=== PATIENT | female | born 1955 | race Caucasian/White ===

== ENCOUNTER → 2020-10-10 09:29 | Outpatient (BNVA) | payer OTHER, SELFPAY | PROVIDERS: PCP Internal Medicine; Visit Provider Physician Assistant | DX: Z76.89 Persons encountering health services in other specified circumstances (principal) ==

== ENCOUNTER → 2020-12-11 08:14 | Outpatient (BNVA) | payer OTHER, SELFPAY | PROVIDERS: PCP Internal Medicine; Visit Provider Physician Assistant ==

== ENCOUNTER → 2021-01-15 08:20 | Outpatient (BNVA) | payer OTHER, SELFPAY | PROVIDERS: PCP Internal Medicine; Visit Provider Dietitian, Registered ==

== ENCOUNTER → 2021-02-19 08:25 | Outpatient (BNVA) | payer OTHER, SELFPAY | PROVIDERS: PCP Internal Medicine; Visit Provider Physician Assistant ==

== ENCOUNTER 2023-06-25 09:15 | Outpatient (AMB) | payer OTHER, SELFPAY ==
--- NOTE | 2023-06-25 09:19 | A.OFFVIS_ITS ---
Intake VS Expanded 06/25/23 09:26 Height 5 ft 9 in Weight 196 lb 3.2 oz BMI 29.0 BP 146/72 H Blood Pressure Location Lt brachial Blood Pressure Position Sitting Respiratory Rate 14 Pulse 83 Temp 97.6 F Temperature Source Tympanic Body Fat 75.4 Body Fat Percentage 38.5 Free Fat Mass 120.6 Muscle Mass 114.4 Visceral Mass 10.0 Water Mass 84.4 BMR 1,638 Intake Visit Reasons: (OV) PO LSG 04/04/19 Allergies nitrous oxide [NITROUS OXIDE] Allergy (Unknown, Verified 06/25/23 09:25) CRY FOR DAYS Medication List - Last Reconciled 06/25/23 by Aggie Jaffe PA-C alendronate 70 mg PO QWEEK duloxetine mg PO eletriptan mg PO gabapentin mg PO galcanezumab-gnlm (Emgality) mg subcut lorazepam mg PO hcujinrygbca-yvz-ligk-FA-vit K 45 mg iron- 800 mcg-120 mcg (Bariatric Multivitamins) caps PO rizatriptan mg PO HPI HPI Comments History of Present Illness Details Pt is 4 years s/p LSG with Dr Meier. Last appt was January 2021 at 170 lbs. Pt had lapse in car has restarting emotional eating with 25 lb weight gain an increase migraines. Has a therapist now. Was involved with [facility] post op [facility] - no longer has time in her work schedule. Goal is to weigh 160 lbs and feel more in control of eating behaviors. Meal plan: wakes at 8:30 am and bed at 12MN. 10 am - protein bar or Shake. coffee - 2 cups with UAM (stopped sweetened creamer) 11 am - while driving has hernandez tomatoes or fruit - 1/2 pint 2-3 pm- bar 5pm - bar 8-8:30 - salad with vegetarian chicken nuggets, 9pm - 10pm - popcorn, cheese 70 ounce water per day.. Rare ETOH, 5d/ week marijuana -works for her and doesn't increase appettite Stopped exercising during back pain. Post op complications: none JONO: DM HTN: Hyperlipidemia: GERD: 0-5 scale 0 = no symptoms 1 = symptoms noticeable but not bothersome 2 =symptoms bothersome but not daily 3 = symptoms bothersome and daily 4 = symptoms affect daily activities 5 = symptoms are incapacitating, unable to do daily activities How bad is the heartburn ? Heartburn while lying down ? Heartburn when standing up ? Heartburn after meals ? Does heartburn change your diet ? Does heartburn wake you up from sleep ? Do you have difficulty swallowing ? Do you have pain with swallowing -? If you take medicine for your reflux, does this affect your daily life ? Satisfaction with present condition - satisfied ___ Not satisfied ___ [facility] Medical History (Updated 06/25/23 @ 09:42 by Aggie Jaffe PA-C) Hx of corticosteroid therapy Hx of fracture of pelvis Osteoarthritis Temporary high blood pressure Ulcerative colitis Surgical History History of sleeve gastrectomy Hx laparoscopic cholecystectomy Hx of tonsillectomy Status post right knee replacement Family History Father Ulcerative colitis Hypertension COPD (chronic obstructive pulmonary disease) Bladder cancer Mother Heart disease Sleep apnea Brother Sleep apnea Brother Hypertension Sleep apnea Leukemia Social History Alcohol intake: never Physical Exam Vital Signs: Last Vital Signs Temp 97.6 F 06/25/23 09:26 Pulse 83 06/25/23 09:26 Resp 14 06/25/23 09:26 BP 146/72 H 06/25/23 09:26 BMI result Body Mass Index 29.9 Const General: cooperative, healthy appearing, comfortable and no acute distress GI Inspection: Yes normal to inspection and Yes incision (well healed) Palpation (GI): Soft to palpation, nontender, no hernias and no masses Assessment & Plan Assessment & Plan (1) Overweight: Code(s): E66.3 - Overweight Plan: 80 gram protein per day. She doesn't cookm, is vegetarian, does not eat eggs. She would like information about food delivery services. We discussed more mindful eatng practices and more healthful meals. Stop eating while driving Breakfast meal - 15- 20 grms - tofu salad, vegan egg cups lunch - 20 grams - yogurt with 1/4 cup berries dinner - 30 grams after dinner - 20 gram bar - Exercise - TBP sitting and Yoga for strengthening. Is trying to get more treatment for her chronic back pain. Carol gillis. Discussed reaching out to [facility] or [facility] for more resources, may be moving to [facility] and may need resources there. Post op labs ordered today, patient will puchase Bossman with Iron and increase her calcium/Vit d to bid. I spent 45 minutes in total with patient reviewing/updating records, examining the patient and counseling the patient on weight management as detailed above. (2) History of sleeve gastrectomy: Comment: March 2019 Code(s): Z90.3 - Acquired absence of stomach [part of] Orders: Orders Vitamin B12 and Folate Today E66.3 - Overweight, Z90.3 - Acquired absence of stomach [part of] Comprehensive Met. Panel Today E66.3 - Overweight, Z90.3 - Acquired absence of stomach [part of] C Reactive Protein Today E66.3 - Overweight, Z90.3 - Acquired absence of stomach [part of] Ferritin Today E66.3 - Overweight, Z90.3 - Acquired absence of stomach [part of] Hemoglobin A1c Today E66.3 - Overweight, Z90.3 - Acquired absence of stomach [part of] Insulin Today E66.3 - Overweight, Z90.3 - Acquired absence of stomach [part of] IRON PROFILE Today E66.3 - Overweight, Z90.3 - Acquired absence of stomach [part of] Lipid Panel Today E66.3 - Overweight, Z90.3 - Acquired absence of stomach [part of] PTHI Today E66.3 - Overweight, Z90.3 - Acquired absence of stomach [part of] TSH reflex Free T4 Today E66.3 - Overweight, Z90.3 - Acquired absence of stomach [part of] Vitamin A Today E66.3 - Overweight, Z90.3 - Acquired absence of stomach [part of] Vitamin B1 Today E66.3 - Overweight, Z90.3 - Acquired absence of stomach [part of] Vitamin D 25-OH Total Today E66.3 - Overweight, Z90.3 - Acquired absence of stomach [part of] Zinc Today E66.3 - Overweight, Z90.3 - Acquired absence of stomach [part of] Complete Blood Count Auto Diff Today E66.3 - Overweight, Z90.3 - Acquired absence of stomach [part of] Coding Level of Care Code Est Pt Level 5 (38185) Diagnoses Overweight E66.3 History of sleeve gastrectomy Z90.3
[2023-06-25 09:26] VITALS: BP 146/72; PULSE 83; RESP 14; TEMP 36.4; BMI 29.0
== END 2023-06-25 10:23 | disposition home or self-care (01) ==
PROVIDERS: PCP Internal Medicine; Visit Provider Physician Assistant
DX: E66.3 Overweight (principal); Z68.29 Body mass index [BMI] 29.0-29.9, adult; Z90.3 Acquired absence of stomach [part of]; Z98.84 Bariatric surgery status
CPT/HCPCS: 99215

== ENCOUNTER → 2023-06-25 09:15 | Outpatient (BNVA) | payer OTHER, SELFPAY | PROVIDERS: PCP Internal Medicine; Visit Provider Physician Assistant ==

== ENCOUNTER → 2023-07-19 09:39 | Outpatient (BNVA) | payer OTHER, SELFPAY | PROVIDERS: PCP Internal Medicine; Visit Provider Dietitian, Registered | DX: E66.9 Obesity, unspecified (principal); Z98.84 Bariatric surgery status; Z71.3 Dietary counseling and surveillance | CPT/HCPCS: 97803 ==